=== PATIENT | female | born 1970 | race Caucasian/White ===

== ENCOUNTER 2018-06-01 17:01 | Emergency (ER) | payer OTHER, SELFPAY ==
[2018-06-01 17:05] VITALS: BP 142/81; PULSE 82; RESP 30; TEMP 37.1; O2SAT 100
--- NOTE | 2018-06-01 18:16 | ED.ANXIETY ---
HPI - Anxiety <Annmarie Alarcon PA-C - Last Filed: 06/01/18 22:00> General Chief Complaint: Anxiety Stated Complaint: PANIC ATTACK Time Seen by Provider: 06/01/18 18:06 Source: patient and family Mode of arrival: ambulatory Limitations: no limitations History of Present Illness HPI narrative: This generally healthy 48-year-old female comes in due to worsening anxiety. She has a long history of anxiety primarily with a little bit of related depression. She states that she has been on citalopram and trazodone for this for 10 years with good treatment response. She states that before that she did have occasional panic attacks but since on these medications, that is rare and she has not needed to treat panic attacks with medications. She moved here several months ago with her for the new job that he had gotten here, then got laid off in March. She states that she has been gradually feeling more and more overwhelmed by increased stress and she thinks things worsen today when she paid bills. She states that she is feeling shaky and jittery all over. She is not having chest pain or dyspnea. She feels like she can't come down and has been tearful. She denies feeling at all suicidal, just states she feels overwhelmed. She has been looking for a counselor and actually did find 1 through her [facility] today whom she will be able to start seeing next week. She does have a local PCP. Her supportive parents and are here with her. There is no family history of depression or anxiety disorders Related Data Home Medications Medication Instructions Recorded Confirmed citalopram 40 mg PO DAILY 06/01/18 06/01/18 trazodone 50 mg PO BEDTIME PRN 06/01/18 06/01/18 Previous Rx's Medication Instructions Recorded lorazepam 1 mg PO Q12H PRN #2 tab 06/01/18 Allergies Allergy/AdvReac Type Severity Reaction Status Date / Time No Known Drug Allergies Allergy Verified 06/01/18 17:07 Review of Systems <Annmarie Alarcon PA-C - Last Filed: 06/01/18 22:00> Review of Systems ROS Unobtainable: All systems reviewed & are unremarkable except as noted in HPI and below PFSH <Annmarie Alarcon PA-C - Last Filed: 06/01/18 22:00> Medical History Generalized anxiety disorder with panic attacks (Chronic) No pertinent family history (Chronic) Surgical History Status post hysterectomy (Chronic) Social History Smoking Status: Never smoker Social History Smoking Status: Never smoker Exam <Annmarie Alarcon PA-C - Last Filed: 06/01/18 22:00> Narrative Exam Narrative: GENERAL APPEARANCE: Patient tearful, appears anxious, but in NAD HEENT: PERRL, EOMI, normal oropharynx NECK/THYROID: Neck supple, no masses LUNGS: Clear to auscultation bilaterally. HEART: Regular rate and rhythm without murmur, normal S1, S2, no S3 or S4. EXTREMITIES: No cyanosis. No calf tenderness NEUROLOGIC: Alert and oriented, normal speech, and coordination. PSYCH: Anxious but appropriate affect, good eye contact Initial Vital Signs Initial Vital Signs: Vital Signs Temperature 98.7 F 06/01/18 17:05 Pulse Rate 82 06/01/18 17:05 Respiratory Rate 30 H 06/01/18 17:05 Blood Pressure 142/81 H 06/01/18 17:05 Pulse Oximetry 100 06/01/18 17:05 <Freddie Crawford DO - Last Filed: 06/01/18 23:13> Initial Vital Signs Initial Vital Signs: Vital Signs Temperature 98.7 F 06/01/18 17:05 Pulse Rate 82 06/01/18 17:05 Respiratory Rate 30 H 06/01/18 17:05 Blood Pressure 142/81 H 06/01/18 17:05 Pulse Oximetry 100 06/01/18 17:05 Course <Annmarie Alarcon PA-C - Last Filed: 06/01/18 22:00> Additional Information: Patient is feeling improved at the time of discharge almost normal . She has rarely used Ativan in the past, last many years ago, for panic attack symptoms. Reasonable for her to use occasionally but discussed that these are not to be used on any regular basis and she does need to work with her PCP on making adjustments to her maintenance medicines, which generally have worked well for her. She also talked with our high school social studies tutor el who gave her some behavioral and coping techniques and she felt this was helpful as well. She has very supportive family with her. She already has counseling appointment pending and she will call her PCP office to arrange follow-up in the next couple of days. She is not feeling at all suicidal. She agreed to return if any acutely worsening symptoms again Orders Ordered: Discontinued Medications Lorazepam (Ativan) 1 mg PO NOW ONE Stop: 06/01/18 18:36 Last Admin: 06/01/18 18:38 Dose: 1 mg Vital Signs - 8 hr 06/01/18 17:05 06/01/18 20:09 Temperature 98.7 F Pulse Rate 82 66 Respiratory Rate 30 H 14 Blood Pressure 142/81 H 115/60 Pulse Oximetry 100 100 <Freddie Crawford DO - Last Filed: 06/01/18 23:13> Orders Ordered: Discontinued Medications Lorazepam (Ativan) 1 mg PO NOW ONE Stop: 06/01/18 18:36 Last Admin: 06/01/18 18:38 Dose: 1 mg Vital Signs - 8 hr 06/01/18 17:05 06/01/18 20:09 Temperature 98.7 F Pulse Rate 82 66 Respiratory Rate 30 H 14 Blood Pressure 142/81 H 115/60 Pulse Oximetry 100 100 Discharge Plan Departure Patient Disposition: Home Clinical Impression: Panic attack as reaction to stress Discharge Date/Time: 06/01/18 20:09 Interventions: ED Discharge Assessment Last Done: 06/01/18 20:09 Instructions: DI for Anxiety -- Adult, DI for Panic Disorder Activity Restrictions/Additional Instructions: Since you are feeling better, it is okay to return home and monitor tonight. You can take your trazodone if you wish since he will be going to bed late, or if you are still feeling drowsy, you can cut the dose in half. Continue your usual doses of medication tomorrow. Call RUBA Edwards's office 1st thing in the morning and let them know you were seen in the emergency room so that you can follow up in the next day or 2 to talk about making medication changes since your anxiety has been worse for several months now. I have printed a prescription for a couple of the Ativan, which you had tonight, in case you need another dose before you are seen (this is not used on a regular basis, only for severe panic attack, but may be helpful to have on hand while you are figuring out medication adjustments). Please proceed with counseling as you have planned. As we talked about, you should return to the ED if you are feeling acutely worse again or have new symptoms such as feeling suicidal Prescriptions: New lorazepam 1 mg tablet 1 mg PO Q12H PRN (Reason: panic attack) Qty: 2 RF: 0 No Action citalopram 40 mg Tablet 40 mg PO DAILY RF: 0 trazodone 50 mg Tablet 50 mg PO BEDTIME PRN (Reason: Anxiety) RF: 0 Referrals: Yuliya Edwards ARNP [Non-Staff] - <Freddie Crawford DO - Last Filed: 06/01/18 23:13> Cosign ED Attending Oskar Attestation: I was available for consultation during this patient's emergency department encounter
[2018-06-01] MEDS: LORazepam 0.5 MG TABLET 1 MG PO (18:38)
--- NOTE | 2018-06-01 19:03 | CM.SWNOTE ---
ED CORE SETTER Note: Presenting Problem: Pt is a 48 yo female w ho looks approximately her stated age. She is very pleasant and cooperative. Pt has had a hx of anxiety and panic attacks, but usually is able to manage. Today she came to the emergency room due to increased anxiety and panic attacks. She is feeling overwhelmed by stressors, especially her 's loss of job. Intervention: ED CORE SETTER provided pt with a handout of relaxation and breathing methods and demonstrated a breathing exercise with her. CORE SETTER also discussed grounding and gave pt the name of the [employer]ak [employer] which guides one through grounding exercises. CORE SETTER used reflective and supportive listening. Mental Status: Pt appears stated age. Mood: sad, and tearful. Affect: congruent with stated feelings. Speech: normal for rate and rhythm with no sign of psychotic thought process. SI/HI: none. Plan: Pt to discharge home with . She is aware of the crisis line and is expecting to meet with a counselor from her [facility] this week. Pt appreciative of contact from SW. No further SW need identified.
[2018-06-01 20:09] VITALS: BP 115/60; PULSE 66; RESP 14; O2SAT 100
== END 2018-06-01 20:09 | disposition home or self-care (01) ==
PROVIDERS: Emergency Provider Internal Medicine
DX: F41.0 Panic disorder [episodic paroxysmal anxiety] (principal)
CPT/HCPCS: 99282; 99283

== ENCOUNTER 2018-07-24 15:40 | Emergency (ER) | payer OTHER, SELFPAY ==
[2018-07-24 15:55] VITALS: BP 138/91; PULSE 80; RESP 18; TEMP 37; O2SAT 100
[2018-07-24 17:00] VITALS: BP 143/83; PULSE 82; RESP 17; O2SAT 97
[2018-07-24] MEDS: hydrOXYzine pamoate 25 MG CAPSULE 50 MG PO (17:01)
[2018-07-24 17:09] LABS: Add Manual Diff / Slide Review NO; Basophils Absolute Auto 100 /uL (0-100); Eosinophils Absolute Auto 200 /uL (0-450); Eosinophils Percent Auto 1.6 % (2-4); Hematocrit 43.8 % (36-46); Hemoglobin 14.8 g/dL (12.0-16.0); Lymphocytes Absolute Auto 2500 /uL (1100-4500); Lymphocytes Percent Auto 22.9 % (25-40); Mean Corpuscular HGB Conc 33.8 % (30-36); Mean Corpuscular Hemoglobin 29.6 PG (26-34); Mean Corpuscular Volume 87.5 fL (80-100); Monocytes Absolute Auto 700 /uL (0-900); Monocytes Percent Auto 6.3 % (3-14); Neutrophils Absolute Auto 7300 /uL (1500-7000); Neutrophils Percent Auto 68.2 % (50-75); Platelet Count 268 X10^3/uL (150-400); Red Cell Distribution Width 13.8 % (11.6-14.8); White Blood Cell Count 10.7 X10^3/uL (4.5-11.0)
--- NOTE | 2018-07-24 17:15 | ED.ANXIETY ---
HPI - Anxiety <YARED Welch - Last Filed: 07/24/18 18:36> General Chief Complaint: Anxiety Stated Complaint: Anxiety and palpitations Time Seen by Provider: 07/24/18 16:21 Source: patient and family Mode of arrival: ambulatory Limitations: no limitations History of Present Illness HPI narrative: 48 yo F with PMH of anxiety attacks and depression who is currently being treated with citalopram, trazadone, and PRN lorazepam for the past 10 years, presents to the ED today after calling her PCP about increased stress, anxiety attacks, and heart palpations the past week. States that her lost his job in March and she is having a hard time coping, feels sad and tearful often. Sees two counselors, reports supportive family, feels safe at home, denies SI, HI, or abuse. States heart palpitations (heart pounding) have been intermittent the last month with increasing frequency the past week occurring > 10 times a day. Palpitations are worse with anxiety episodes and come with associated mild nausea. Denies dizziness, vision change, chest pain, SOB, cough, dysuria, back pain, abd pain, vomiting, stool changes, fevers, chills, ankle swelling, change in appetite, fatigue, or hair loss. No history of cardiac of thyroid disorders. States this feels like a panic attack. MD complaint: anxiety and other (Palpatations) Onset (ago): week(s) Symptoms: palpitations Severity: mild Quality: intermittent Place: home History of similar episodes: Yes Provoking factors: emotional stress Relieving factors: rest Associated symptoms: palpitations Related Data Home Medications Medication Instructions Recorded Confirmed citalopram 40 mg PO DAILY 06/01/18 07/24/18 trazodone 50 mg PO BEDTIME PRN 06/01/18 07/24/18 Previous Rx's Medication Instructions Recorded lorazepam 1 mg PO Q12H PRN #2 tab 06/01/18 hydroxyzine pamoate 50 mg PO Q8H PRN #10 cap 07/24/18 Allergies Allergy/AdvReac Type Severity Reaction Status Date / Time No Known Drug Allergies Allergy Verified 06/01/18 17:07 Review of Systems <YARED Welch - Last Filed: 07/24/18 18:36> Constitutional Denies anorexia, Denies chills, Denies daytime sleepiness, Denies fatigue, Denies fever(s), Denies headache(s) and Denies increased appetite Eyes Denies change in vision ENT Ears, Nose, Mouth, and Throat: Denies headache(s) Cardiovascular Denies chest pain at rest, Denies chest pain with activity, Denies diaphoresis, Denies syncope, Denies rapid heart rate, Denies leg edema, Denies lightheadedness, Denies radiating jaw, neck or arm pain, Reports palpitations, Denies dyspnea and Denies dyspnea on exertion Respiratory Denies cough, Denies dyspnea, Denies dyspnea on exertion and Denies wheezing Gastrointestinal Gastrointestinal: Reports abdominal pain, Denies change in bowel habits, Denies diarrhea, Denies nausea and Denies vomiting Genitourinary Denies flank pain and Denies urinary urgency Musculoskeletal Denies back pain, Denies muscle weakness, Denies numbness and Denies tingling Integumentary/Breasts Denies pruritus, Denies erythema, Denies rash and Denies wounds Neurologic Denies confusion, Denies syncope, Denies headache(s), Denies numbness and Denies tingling Psychiatric Reports anxiety, Denies confusion, Denies depression, Denies homicidal ideation and Denies suicidal ideation Endocrine Denies fatigue and Reports palpitations Hematologic/Lymphatic Denies easy bruising Allergic/Immunologic Denies wheezing PFSH <YARED Welch - Last Filed: 07/24/18 18:36> Medical History Generalized anxiety disorder with panic attacks (Chronic) No pertinent family history (Chronic) Surgical History Status post hysterectomy (Chronic) Social History Smoking Status: Never smoker Social History Smoking Status: Never smoker Exam <YARED Welch - Last Filed: 07/24/18 18:36> Narrative Exam Narrative: Patient in room with , tearful but able to engage in discussion. Initial Vital Signs Initial Vital Signs: Vital Signs Temperature 98.6 F 07/24/18 15:55 Pulse Rate 80 07/24/18 15:55 Respiratory Rate 18 07/24/18 15:55 Blood Pressure 138/91 H 07/24/18 15:55 Pulse Oximetry 100 07/24/18 15:55 Const General: cooperative, healthy appearing, well developed, well groomed and anxious Nutritional Appearance: well nourished Orientation: alert, awake, oriented x3 and not confused [facility] Head: normocephalic and atraumatic Ears: external ears normal and TM's normal bilaterally Nose: external nose normal and No nasal discharge Face and sinus: face symmetric and No dry mucous membranes Mouth: oral mucosae normal and moist mucous membranes Eyes General: appearance normal, both eyes and all related structures Eyelids: eyelids normal Conjunctivae: conjunctivae normal Sclera: sclerae normal Pupils: PERRL EOM: EOM intact bilaterally Neck Neck: normal visual inspection, trachea midline and No JVD Chest Chest: normal inspection of the chest Resp Effort & Inspection: normal respiratory effort, able to speak in complete sentences, no respiratory distress and no use of accessory muscles Auscultation: clear to auscultation bilaterally, no rales, no rhonchi and no wheezes Cardio Rate: regular rate Rhythm: regular rhythm Heart Sounds: S1 normal, S2 normal, no click, no gallops, no murmurs and no rubs Pulses: normal peripheral pulses GI Inspection: non-distended Palpation: soft, no hepatosplenomegaly, No guarding, No pulsatile mass and No tender Auscultation: normal bowel sounds Back/Spine/Pelvis Back: No CVA tenderness Cervical Spine: cervical ROM normal and No pain with cervical ROM Thoracic/Lumbar Spine: thoracic and lumbar spine normal to inspection Skin General: no rashes or lesions noted, No jaundice and No petechiae Neuro General: alert, oriented x3, gait normal and no focal motor deficits Speech: speech normal Extrem General: full ROM, no clubbing, cyanosis or edema, no pedal edema and no calf tenderness Psych Appearance: well kempt Mental Status: mental status grossly normal Attitude: cooperative, not belligerent, not guarded and establishes eye contact Thought Process: normal Thought Content: normal and suicidality Judgment: judgment good Other: Tearful, anxious. <Sharri Caballero, DO - Last Filed: 07/24/18 19:07> Initial Vital Signs Initial Vital Signs: Vital Signs Temperature 98.6 F 07/24/18 15:55 Pulse Rate 80 07/24/18 15:55 Respiratory Rate 18 07/24/18 15:55 Blood Pressure 138/91 H 07/24/18 15:55 Pulse Oximetry 100 07/24/18 15:55 <Sharri Caballero DO - Last Filed: 07/24/18 19:07> HEART Score Heart Score history: Slightly Suspicious Heart Score EKG: Normal Heart Score Age: 45-64 years old Heart Score risk factors: No known risk factors Heart Score troponin: < or = to normal limit Heart Score Total: 1 Course <YARED Welch - Last Filed: 07/24/18 18:36> Course Narrative: TSH and electrolytes drawn due to report of palpitations and patient's concern for thyroid problems. Vistril given as for anxiety during stay. Orders Ordered: ED Orders 07/24/18 16:15 EKG-12 Lead Stat 07/24/18 17:03 Complete Blood Count AUTO DIFF Stat Comprehensive Metabolic Panel Stat Thyroid Stimulating Hormone Stat Discontinued Medications Hydroxyzine Pamoate (Vistaril) 50 mg PO NOW ONE Stop: 07/24/18 16:47 Last Admin: 07/24/18 17:01 Dose: 50 mg Vital Signs - 8 hr 07/24/18 15:55 07/24/18 17:00 07/24/18 18:00 Temperature 98.6 F Pulse Rate 80 82 75 Respiratory Rate 18 17 17 Blood Pressure 138/91 H Blood Pressure [Right Arm] 143/83 H 131/70 Pulse Oximetry 100 97 98 <Sharri Caballero DO - Last Filed: 07/24/18 19:07> Orders Ordered: ED Orders 07/24/18 16:15 EKG-12 Lead Stat 07/24/18 17:03 Complete Blood Count AUTO DIFF Stat Comprehensive Metabolic Panel Stat Thyroid Stimulating Hormone Stat Discontinued Medications Hydroxyzine Pamoate (Vistaril) 50 mg PO NOW ONE Stop: 07/24/18 16:47 Last Admin: 07/24/18 17:01 Dose: 50 mg Vital Signs - 8 hr 07/24/18 15:55 07/24/18 17:00 07/24/18 18:00 Temperature 98.6 F Pulse Rate 80 82 75 Respiratory Rate 18 17 17 Blood Pressure 138/91 H Blood Pressure [Right Arm] 143/83 H 131/70 Pulse Oximetry 100 97 98 MDM - Anxiety <YARED Welch - Last Filed: 07/24/18 18:36> Differential Diagnosis Differential diagnosis: Likely acute anxiety Medical Records Attestation: I reviewed the patient's medical records. Lab Data Attestation: I reviewed the patient's lab results. Result diagrams: 07/24/18 17:03 07/24/18 17:03 Lab Results 07/24/18 07/24/18 07/24/18 Range/Units 17:03 17:03 17:03 WBC 10.7 (4.5-11.0) X10^3/uL RBC 5.00 (4.0-5.2) X10^6/uL Hgb 14.8 (12.0-16.0) g/dL Hct 43.8 (36-46) % MCV 87.5 (80-100) fL MCH 29.6 (26-34) PG MCHC 33.8 (30-36) % RDW 13.8 (11.6-14.8) % Plt Count 268 (150-400) X10^3/uL Neut % (Auto) 68.2 (50-75) % Lymph % (Auto) 22.9 L (25-40) % Garfield % (Auto) 6.3 (3-14) % Eos % (Auto) 1.6 L (2-4) % Baso % (Auto) 1.0 (0-2) % Neut # (Auto) 7300 H (3010-7665) /uL Lymph # (Auto) 2500 (2243-8761) /uL Garfield # (Auto) 700 (0-900) /uL Eos # (Auto) 200 (0-450) /uL Baso # (Auto) 100 (0-100) /uL Sodium 138 (137-145) mmol/L Potassium 3.4 (3.4-5.1) mmol/L Chloride 104 (98-107) mmol/L Carbon Dioxide 20 L (22-32) mmol/L BUN 13 (7-17) mg/dL Creatinine 0.70 (0.52-1.04) mg/dL Estimated GFR > 60.0 (>60) mL/min BUN/Creatinine Ratio 18.6 (6-22) Glucose 103 H (70-100) mg/dL Calcium 9.5 (8.4-10.2) mg/dL Total Bilirubin 0.7 (0.2-1.3) mg/dL AST 27 (14-36) IU/L ALT 18 (9-52) IU/L Alkaline Phosphatase 60 (38-126) U/L Total Protein 8.3 H (6.3-8.2) g/dL Albumin 4.9 (3.5-5.0) g/dL Globulin 3.4 (1.7-4.1) g/dL Albumin/Globulin Ratio 1.4 (1.0-2.8) TSH 1.99 (0.47-4.68) uIU/mL Urine Dip Bedside Urine Glucose Negative Bedside Urine Bilirubin - Negative Bedside Urine Ketone ++ 40 Urine Specific [place] 1.015 Bedside Urine Occult Blood +/- Bedside Urine pH 6.5 Bedside Urine Protein - Negative Bedside Urine Urobilinogen - Negative Bedside Urine Nitrite - Negative Bedside Urine Leukocytes - Negative Esterase ECG Data Attestation: I personally reviewed and interpreted this ECG as follows: Interpretation: NSR, normal axis, No PVCs or PACs, Rate: 76 BPM, No ST elevation or Twave depression. [facility] Narrative Medical decision making narrative: I highly suspect that her symptoms are caused from anxiety due to the fact that patient has a strong history of anxiety, these symptoms feel similar to past panic attacks, she reports increased stress, and there are no other alarming symptoms associated with palpitations (diaphoresis, dizziness, chest pain, changes in activity, family/person history of heart problems, HTN, DMs). Additionally, symptoms were reduced with the administration of hydroxyzine. Less likely thyroid disorder (lack of change in appetite, hair loss, temperature intolerance, and normal TSH). <Sharri Caballero DO - Last Filed: 07/24/18 19:07> Lab Data Attestation: I reviewed the patient's lab results. Lab Results 07/24/18 07/24/18 07/24/18 Range/Units 17:03 17:03 17:03 WBC 10.7 (4.5-11.0) X10^3/uL RBC 5.00 (4.0-5.2) X10^6/uL Hgb 14.8 (12.0-16.0) g/dL Hct 43.8 (36-46) % MCV 87.5 (80-100) fL MCH 29.6 (26-34) PG MCHC 33.8 (30-36) % RDW 13.8 (11.6-14.8) % Plt Count 268 (150-400) X10^3/uL Neut % (Auto) 68.2 (50-75) % Lymph % (Auto) 22.9 L (25-40) % Garfield % (Auto) 6.3 (3-14) % Eos % (Auto) 1.6 L (2-4) % Baso % (Auto) 1.0 (0-2) % Neut # (Auto) 7300 H (8111-2941) /uL Lymph # (Auto) 2500 (4886-9878) /uL Garfield # (Auto) 700 (0-900) /uL Eos # (Auto) 200 (0-450) /uL Baso # (Auto) 100 (0-100) /uL Sodium 138 (137-145) mmol/L Potassium 3.4 (3.4-5.1) mmol/L Chloride 104 (98-107) mmol/L Carbon Dioxide 20 L (22-32) mmol/L BUN 13 (7-17) mg/dL Creatinine 0.70 (0.52-1.04) mg/dL Estimated GFR > 60.0 (>60) mL/min BUN/Creatinine Ratio 18.6 (6-22) Glucose 103 H (70-100) mg/dL Calcium 9.5 (8.4-10.2) mg/dL Total Bilirubin 0.7 (0.2-1.3) mg/dL AST 27 (14-36) IU/L ALT 18 (9-52) IU/L Alkaline Phosphatase 60 (38-126) U/L Total Protein 8.3 H (6.3-8.2) g/dL Albumin 4.9 (3.5-5.0) g/dL Globulin 3.4 (1.7-4.1) g/dL Albumin/Globulin Ratio 1.4 (1.0-2.8) TSH 1.99 (0.47-4.68) uIU/mL Urine Dip Bedside Urine Glucose Negative Bedside Urine Bilirubin - Negative Bedside Urine Ketone ++ 40 Urine Specific [place] 1.015 Bedside Urine Occult Blood +/- Bedside Urine pH 6.5 Bedside Urine Protein - Negative Bedside Urine Urobilinogen - Negative Bedside Urine Nitrite - Negative Bedside Urine Leukocytes - Negative Esterase ECG Data Attestation: I personally reviewed and interpreted this ECG as follows: Prior ECG tracings: not available for review Interpretation: Normal sinus rhythm rate [address] changes no priors to compare low-voltage Discharge Plan Departure Patient Disposition: Home Clinical Impression: Acute anxiety Discharge Date/Time: 07/24/18 18:36 Interventions: ED Discharge Assessment Last Done: 07/24/18 18:36 Instructions: Anxiety and Panic Attacks (Alternative Therapy), DI for Anxiety -- Adult, Yoga May Help Reduce Anxiety and Stress Activity Restrictions/Additional Instructions: Your lab tests and EKG have come pack normal. Your symptoms may be caused by anxiety. I recommend following up with your primary care provider to discuss possible longer-term medications for anxiety, please keep in touch with your therapist. I have prescribed you Vistaril to take for anxiety if needed. If you have any thoughts of harming yourself or others please seek emergency care. Suicide Prevention Hotline: Prescriptions: New hydroxyzine pamoate 50 mg capsule 50 mg PO Q8H PRN (Reason: Anxiety ) Qty: 10 RF: 0 No Action citalopram 40 mg Tablet 40 mg PO DAILY RF: 0 trazodone 50 mg Tablet 50 mg PO BEDTIME PRN (Reason: Anxiety) RF: 0 lorazepam 1 mg tablet 1 mg PO Q12H PRN (Reason: panic attack) Qty: 2 RF: 0 <Sharri Caballero DO - Last Filed: 07/24/18 19:07> [facility] Attestation: I was immediately available in the department for consultation. Documentation has been reviewed. I agree with assessment and plan.
[2018-07-24 17:28] LABS: Alanine Aminotransferase 18 IU/L (9-52); Albumin 4.9 g/dL (3.5-5.0); Albumin Globulin Ratio 1.4 (1.0-2.8); Alkaline Phosphatase 60 U/L (38-126); Aspartate Aminotransferase 27 IU/L (14-36); BUN Creatinine Ratio 18.6 (6-22); Bilirubin Total 0.7 mg/dL (0.2-1.3); Blood Urea Nitrogen 13 mg/dL (7-17); Calcium 9.5 mg/dL (8.4-10.2); Carbon Dioxide 20 mmol/L (22-32); Chloride 104 mmol/L (98-107); Estimated Glomerular Filt Rate > 60.0 mL/min (>60); Globulin 3.4 g/dL (1.7-4.1); Glucose 103 mg/dL (70-100); HEMOLYSIS < 15 (0-50); Potassium 3.4 mmol/L (3.4-5.1); Sodium 138 mmol/L (137-145); Total Protein 8.3 g/dL (6.3-8.2)
[2018-07-24 18:00] VITALS: BP 131/70; PULSE 75; RESP 17; O2SAT 98
[2018-07-24 18:06] LABS: Thyroid Stimulating Hormone 1.99 uIU/mL (0.47-4.68)
== END 2018-07-24 18:36 | disposition home or self-care (01) ==
PROVIDERS: Emergency Provider Nurse Practitioner
DX: F41.9 Anxiety disorder, unspecified (principal); R00.2 Palpitations
CPT/HCPCS: 36415; 80053; 81003; 84443; 85025; 93005; 93010; 99282; 99284

== ENCOUNTER → 2018-08-20 07:00 | Outpatient (CLI) | payer OTHER, SELFPAY ==
[2018-08-20 09:46] LABS: Add Manual Diff / Slide Review NO; Basophils Absolute Auto 100 /uL (0-100); Basophils Percent Auto 1.2 % (0-2); Eosinophils Absolute Auto 200 /uL (0-450); Eosinophils Percent Auto 2.7 % (2-4); Hematocrit 42.2 % (36-46); Hemoglobin 14.4 g/dL (12.0-16.0); Lymphocytes Absolute Auto 2300 /uL (1100-4500); Lymphocytes Percent Auto 38.2 % (25-40); Mean Corpuscular HGB Conc 34.2 % (30-36); Mean Corpuscular Volume 87.6 fL (80-100); Monocytes Absolute Auto 500 /uL (0-900); Monocytes Percent Auto 8.8 % (3-14); Neutrophils Absolute Auto 2900 /uL (1500-7000); Neutrophils Percent Auto 49.1 % (50-75); Platelet Count 250 X10^3/uL (150-400); Red Blood Cell Count 4.82 X10^6/uL (4.0-5.2); Red Cell Distribution Width 13.4 % (11.6-14.8); White Blood Cell Count 5.9 X10^3/uL (4.5-11.0)
[2018-08-20 10:11] LABS: Alanine Aminotransferase 12 IU/L (9-52); Albumin 4.6 g/dL (3.5-5.0); Albumin Globulin Ratio 1.5 (1.0-2.8); Alkaline Phosphatase 51 U/L (38-126); Aspartate Aminotransferase 21 IU/L (14-36); BUN Creatinine Ratio 18.8 (6-22); Bilirubin Total 0.5 mg/dL (0.2-1.3); Blood Urea Nitrogen 15 mg/dL (7-17); Calcium 9.7 mg/dL (8.4-10.2); Carbon Dioxide 26 mmol/L (22-32); Chloride 105 mmol/L (98-107); Cholesterol 206 mg/dL (140-199); Estimated Glomerular Filt Rate > 60.0 mL/min (>60); Glucose 69 mg/dL (70-100); HDL Cholesterol 55 mg/dL (40-60); HEMOLYSIS < 15 (0-50); LDL Cholesterol Calculated 134 mg/dL (<100); Potassium 4.1 mmol/L (3.4-5.1); Sodium 140 mmol/L (137-145); Total Protein 7.6 g/dL (6.3-8.2); Triglycerides 86 mg/dL (35-150)
[2018-08-20 10:30] LABS: Free T3, Triiodothyronine Free 3.32 pg/mL (2.77-5.27); Free T4, Direct Thyroxine 0.94 ng/dL (0.78-2.19)
[2018-08-20 10:43] LABS: Thyroid Stimulating Hormone 2.05 uIU/mL (0.47-4.68)
[2018-08-22 15:55] LABS: Thyroid Peroxidase Antibodies 1 IU/mL (< 9)
== END ==
PROVIDERS: Visit Provider Naturopath
DX: Z00.00 Encounter for general adult medical examination without abnormal findings (principal); Z13.29 Encounter for screening for other suspected endocrine disorder
CPT/HCPCS: 36415; 80053; 80061; 84439; 84443; 84481; 85025; 86376

== ENCOUNTER → 2020-04-02 07:43 | Outpatient (CLI) | payer OTHER, SELFPAY ==
[2020-04-02 08:50] LABS: Alanine Aminotransferase 32 IU/L (<35); Albumin 4.5 g/dL (3.5-5.0); Albumin Globulin Ratio 1.6 (1.0-2.8); Alkaline Phosphatase 45 U/L (38-126); Aspartate Aminotransferase 31 IU/L (14-36); BUN Creatinine Ratio 18.4 (6-22); Bilirubin Total 0.4 mg/dL (0.2-1.3); Blood Urea Nitrogen 14 mg/dL (7-17); Calcium 9.2 mg/dL (8.4-10.2); Carbon Dioxide 30 mmol/L (22-32); Chloride 106 mmol/L (98-107); Cholesterol 211 mg/dL (140-199); Estimated Glomerular Filt Rate > 60.0 mL/min (>60); Globulin 2.9 g/dL (1.7-4.1); Glucose 86 mg/dL (70-100); HDL Cholesterol 64 mg/dL (40-60); HEMOLYSIS < 15 (0-50); LDL Cholesterol Calculated 128 mg/dL (<100); Sodium 138 mmol/L (137-145); Total Protein 7.4 g/dL (6.3-8.2); Triglycerides 95 mg/dL (35-150)
[2020-04-02 08:57] LABS: Add Manual Diff / Slide Review NO; Basophils Absolute Auto 100 /uL (0-100); Basophils Percent Auto 1.1 % (0-2); Eosinophils Absolute Auto 200 /uL (0-450); Eosinophils Percent Auto 4.4 % (2-4); Hematocrit 43.5 % (36-46); Hemoglobin 14.3 g/dL (12.0-16.0); Lymphocytes Absolute Auto 2300 /uL (1100-4500); Lymphocytes Percent Auto 43.8 % (25-40); Mean Corpuscular HGB Conc 32.8 % (30-36); Mean Corpuscular Hemoglobin 29.1 PG (26-34); Mean Corpuscular Volume 88.8 fL (80-100); Monocytes Absolute Auto 400 /uL (0-900); Monocytes Percent Auto 7.1 % (3-14); Neutrophils Absolute Auto 2300 /uL (1500-7000); Neutrophils Percent Auto 43.6 % (50-75); Platelet Count 221 X10^3/uL (150-400); Red Cell Distribution Width 13.3 % (11.6-14.8); White Blood Cell Count 5.2 X10^3/uL (4.5-11.0)
== END ==
PROVIDERS: Referring Provider Internal Medicine; Visit Provider Internal Medicine
DX: Z13.0 Encounter for screening for diseases of the blood and blood-forming organs and certain disorders involving the immune mechanism (principal); Z13.220 Encounter for screening for lipoid disorders; Z13.29 Encounter for screening for other suspected endocrine disorder
CPT/HCPCS: 36415; 80053; 80061; 84443; 85025

== ENCOUNTER → 2020-06-17 08:45 | Outpatient (CLI) | payer OTHER, SELFPAY ==
[2020-06-17] MEDS: COVID-19 VACC, Ad26(JANSSEN)/PF 0.5 ML IM (08:57)
== END ==
PROVIDERS: Visit Provider Internal Medicine
DX: Z23 Encounter for immunization (principal)
CPT/HCPCS: 0031A; 91303

== ENCOUNTER → 2023-11-16 07:36 | Outpatient (CLI) | payer OTHER, SELFPAY ==
[2023-11-16 08:33] LABS: COVID-19 CEPHEID 4-PLEX PCR Negative (Negative); Influenza A - CEPHEID Flu A NEGATIVE (NEGATIVE); Influenza B - CEPHEID Flu B NEGATIVE (NEGATIVE); Respiratory Syncytial Virus Negative (Negative)
== END ==
PROVIDERS: Visit Provider Registered Nurse
DX: R05.1 Acute cough (principal)
CPT/HCPCS: 0241U